=== PATIENT | male | born 1980 | race African-American/Black ===

== ENCOUNTER 2020-01-02 13:32 | Outpatient (CLI) | payer OTHER, SELFPAY ==
--- NOTE | ~2020-01-02 | XR_ITS ---
XR lumbar spine 2-3V DATE: 01/02/2020 14:02 INDICATION: Chronic back pain for a few months. Back injury 3 years ago TECHNIQUE: AP, lateral views COMPARISON: 06/09/2014 lumbar spine FINDINGS: Normal alignment of the lumbar spine. There is moderately prominent anterior wedging and lo ss of height of L1 consistent with compression fracture, mildly increased in severity since 06/09/2014 . No other fracture or bone destruction is evident. The T12-L5 included pedicles are intact. Lumbar and lumbosacral interspaces are preserved. The sacroiliac joints are intact. IMPRESSION: Old L1 compression fracture deformity Reviewed, dictated and finalized at location A.
== END 2020-01-02 13:33 | disposition home or self-care (01) ==
LOC: ANHIMG 13:42
PROVIDERS: PCP Family Medicine; Visit Provider Family Medicine
DX: M54.9 Dorsalgia, unspecified (principal); M43.8X6 Other specified deforming dorsopathies, lumbar region
CPT/HCPCS: 72100

== ENCOUNTER 2020-07-08 23:16 | Emergency (ER) | payer OTHER, SELFPAY ==
[2020-07-08 23:25] VITALS: BP 118/73; PULSE 83; RESP 16; TEMP 36.7; O2SAT 100
--- NOTE | 2020-07-08 23:53 | ED.GENADULT ---
HPI - General Adult General Chief complaint: Wound/Laceration Stated complaint: staph infect scrotom area Time Seen by Provider: 07/08/20 23:43 History of Present Illness HPI narrative: Patient is a 39-year-old gentleman who presents the emergency department with chief complaint of redness swelling and drainage in his perineal area. Patient states that in his pubic region and in the left hand side of his scrotum he has had some redness swelling and has had some drainage from the affected area. Patient reports he has had history of infections there both for and his primary doctor has treated him multiple times with doxycycline. The patient states that the area is tender to touch reports that it feels warm whenever he touches it and reports that he has had some brownish purulent drainage from the area patient denies fever denies testicle pain Related Data Allergies Allergy/AdvReac Type Severity Reaction Status Date / Time No Known Allergies Allergy Verified 11/22/14 21:43 Review of Systems Review of Systems: Narrative: A 10 system review of systems was completed on the patient and is negative except for what is stated in the HPI. Nursing and ancillary documentation was reviewed. PMFSH Comments Patient reports no significant past medical history other than frequent cellulitis of the perineal area Social history the patient denies illicit drug use Exam Narrative: Exam Narrative: GENERAL: Well-appearing, well-nourished, and in no acute distress. HEAD: Normocephalic, atraumatic. EYES: PERRLA and EOMI. ENT: Nares clear, no rhinorrhea or epistaxis. Mucous membranes moist. NECK: Supple. CHEST: Clear to auscultation. No respiratory distress. HEART: Regular rate and rhythm. No murmur heard. Normal peripheral pulses. ABDOMEN: Soft, nontender, nondistended, normal active bowel sounds. EXTREMITIES: Normal range of motion. No edema. : There is erythema and tenderness of the left inguinal/perineal area extending to the scrotum. There is no tenderness to palpation of the testicles. There is no fluctuance SKIN: Warm, dry, no rash. NEURO: No focal deficits. Alert and oriented x3. PSYCH: Normal mood and affect. Course Course Emergency Course: An Accu-Chek was performed which showed the patient to have a normal blood sugar. The patient will be started on clindamycin empirically to cover for cellulitis Vital Signs Vital signs: Vital Signs Temperature 36.7 C 07/08/20 23:25 Pulse Rate 83 07/08/20 23:25 Respiratory Rate 16 07/08/20 23:25 Blood Pressure 118/73 07/08/20 23:25 Pulse Oximetry 100 07/08/20 23:25 Temperature 36.7 C 07/08/20 23:25 Pulse Rate 83 07/08/20 23:25 Respiratory Rate 16 07/08/20 23:25 Blood Pressure 118/73 07/08/20 23:25 Pulse Oximetry 100 07/08/20 23:25 Medical Decision Making Vital Signs Vital Signs: Vital Signs Temperature 36.7 C 07/08/20 23:25 Pulse Rate 83 07/08/20 23:25 Respiratory Rate 16 07/08/20 23:25 Blood Pressure 118/73 07/08/20 23:25 Pulse Oximetry 100 07/08/20 23:25 Temperature 36.7 C 07/08/20 23:25 Pulse Rate 83 07/08/20 23:25 Respiratory Rate 16 07/08/20 23:25 Blood Pressure 118/73 07/08/20 23:25 Pulse Oximetry 100 07/08/20 23:25 Lab Data Labs: Lab Results 07/08/20 Range/Units 23:52 POC Capillary Glucose 101 (65-105) mg/dl Discharge Plan Discharge Clinical Impression: Cellulitis, perineum Patient Disposition: Home, Self-Care Condition: Stable Instructions: Antibiotic Form, Cellulitis (ED) Prescriptions: New clindamycin HCl 300 mg capsule 300 mg PO Q6H Qty: 40 RF: 0 Follow-up/Referrals: Jerod,Vivian Barnett MD [Primary Care Provider] - Time of Disposition: 00:06
[2020-07-08 23:54] LABS: Glucose Point of Care 101 (65-105)
[2020-07-08] MEDS: CLINDAMYCIN HCL 150 MG CAP 300 MG PO (23:56)
[2020-07-09 00:11] VITALS: BP 118/71; PULSE 81; RESP 16; TEMP 36.7; O2SAT 100
== END 2020-07-09 00:12 | disposition home or self-care (01) ==
PROVIDERS: Emergency Provider Emergency Medicine; PCP Family Medicine
DX: L03.315 Cellulitis of perineum (principal)
CPT/HCPCS: 82948; 99283; A9270

== ENCOUNTER 2023-09-04 16:56 | Emergency (ER) | payer BC, SELFPAY ==
[2023-09-04 17:13] VITALS: BP 117/87; PULSE 72; RESP 14; TEMP 36.5; O2SAT 100
--- NOTE | 2023-09-04 17:35 | ED.SKABFB ---
HPI - Skin/Abscess/Foreign Bdy General Chief complaint: Skin/Abscess/Foreign Body Stated complaint: left side of neck pain,lump Time Seen by Provider: 09/04/23 17:39 Source: patient and RN notes reviewed Mode of arrival: ambulatory Limitations: dementia History of Present Illness HPI narrative: 42-year-old male presents with concern for insect bite on the neck. Reports he noticed a bite last night that has since gotten much larger in size, tender, warm. Reports history of having about foot bite. He denies swollen lips, swollen tongue, headache, general malaise, fever. Reports he took the Zyrtec without relief complaint: other (Redness) Related Data Allergies Allergy/AdvReac Type Severity Reaction Status Date / Time No Known Allergies Allergy Verified 09/04/23 17:15 Review of Systems Review of Systems: CONSTITUTIONAL: Denies malaise, chills, sweats, or fever. EYES: Denies redness, or discharge. ENT: Denies rhinorrhea, congestion, swollen lips, swollen tongue CARDIOVASCULAR: Denies chest pain, palpitations, or edema. RESPIRATORY: Denies cough or dyspnea. GASTROINTESTINAL: Denies abdominal pain, nausea, vomiting SKIN: Reports redness, swelling, tenderness, itchy to the left neck. Denies purulent drainage, vesicles, bullae, numbness, pain beyond proportion MUSCULOSKELETAL: Denies joint pain or myalgia. NEUROLOGIC: Denies headache. All systems reviewed & are unremarkable except as noted in HPI and below PMFSH Comments At time of signature, agree with nursing past medical, surgical, social and family history. There is no relevant family history pertinent to the presenting complaint Exam Narrative: GENERAL: Well-appearing, well-nourished, and in no acute distress. HEAD: Normocephalic, atraumatic. EYES: PERRLA, conjunctivae clear ENT: Mucous membranes moist. NECK: Supple. No lymphadenopathy CHEST: Clear to auscultation. No respiratory distress. HEART: Regular rate and rhythm. SKIN: Warm, dry. Approximately 4.5 cm by 3 cm area of erythema, edema, induration with slightly clearish yellow drainage, no fluctuation noted to the left-sided neck. No vesicles, bullae, necrosis, ecchymosis, crepitus noted. NEURO: Alert and oriented x3. PSYCH: Normal mood and affect Course Course Emergency Course: Patient is aware of diagnosis, understands and agrees to treatment plan. Anticipatory guidance given. Patient agrees to follow-up as directed and is aware of reasons to seek care at the emergency department. Portions of this record may have been created with voice recognition software Level of Care: [facility] Care Visit Vital Signs Vital signs: Vital Signs Temperature 97.7 F 09/04/23 17:13 Pulse Rate 72 09/04/23 17:13 Respiratory Rate 14 09/04/23 17:13 Blood Pressure 117/87 09/04/23 17:13 Pulse Oximetry 100 09/04/23 17:13 Oxygen Delivery Room Air 09/04/23 17:13 Temperature 97.7 F 09/04/23 17:13 Pulse Rate 72 09/04/23 17:13 Respiratory Rate 14 09/04/23 17:13 Blood Pressure 117/87 09/04/23 17:13 Pulse Oximetry 100 09/04/23 17:13 Oxygen Delivery Room Air 09/04/23 17:13 Reviewed. MDM - Skin/Abscess/Foreign Bdy MDM Narrative Medical decision making narrative: I evaluated this [facility] the [facility] care. History is obtained from patient who is an independent historian and physical exam was performed.? Available medical records were reviewed. ? Exam findings and relevant testing show no acute concerns or changes; patient is non-toxic appearing and is in no distress. No risk factors or findings concerning for epidural abscess, diskitis, vertebral osteomyelitis, cord compression, cauda equina, vertebral fracture or bone malignancy, AAA, or pyelonephritis. Patient instructed to consider further imaging and workup through their primary care physician as an outpatient if symptoms persist. Does not appear at this time to be erythema multiforme, bullous, SJS, TEN; no evidence at this jorge
== END 2023-09-04 18:00 | disposition home or self-care (01) ==
PROVIDERS: Emergency Provider Nurse Practitioner
DX: L08.9 Local infection of the skin and subcutaneous tissue, unspecified (principal); S10.96XA Insect bite of unspecified part of neck, initial encounter; W57.XXXA Bitten or stung by nonvenomous insect and other nonvenomous arthropods, initial encounter
CPT/HCPCS: 99213; G0463